=== PATIENT | female | born 1940 | race Caucasian/White ===

== ENCOUNTER 2025-09-01 12:16 | Inpatient (IN) | payer MEDICARE ==
[2025-09-01] MEDS ORDERED: Magnesium Hydroxide 400 MG/5 ML Susp 30 ML Cup PO PRN (13:14)
[2025-09-01] MEDS ORDERED: Sennosides/Docusate Sodium 50-8.6 MG Tab PO PRN (13:14)
[2025-09-01] MEDS ORDERED: Ondansetron 4 MG Tab.DIS PO PRN (13:14)
[2025-09-01] MEDS ORDERED: Hypromellose 0.3% Ophth Soln 15 ML Bottle EYEBOTH PRN (13:45)
[2025-09-01] MEDS: Lactobacillus Rhamnosus GG (Probiotic) Cap PO SCH (20:42)
[2025-09-02] MEDS: Multivitamins with Iron/Calcium/Folic Acid/Minerals Tab PO SCH (08:11)
== END 2025-09-13 17:27 | disposition home health service (06) | DRG 948 ==
LOC: JP.MS 12:16
PROVIDERS: ADMIT Internal Medicine; ATTEND Internal Medicine
DX: R53.1 Weakness (principal); I50.32 Chronic diastolic (congestive) heart failure; N30.00 Acute cystitis without hematuria; I48.0 Paroxysmal atrial fibrillation; S22.080D Wedge compression fracture of T11-T12 vertebra, subsequent encounter for fracture with routine healing; Z79.899 Other long term (current) drug therapy; Z79.01 Long term (current) use of anticoagulants
CPT/HCPCS: 97110-GO; 97110-GP; 97112-GP; 97116-GP; 97162-GP; 97165-GO; 97530-GP; 97535-GO; 99305; 99308; 99309; 99315; A9270-GY